=== PATIENT | male | born 1990 | race African-American/Black ===

== ENCOUNTER 2017-11-10 20:49 | Emergency (ER) | payer SELFPAY ==
[2017-11-10] MEDS ORDERED: Ibuprofen 800 MG TAB ONE (23:10)
== END 2017-11-10 23:20 | disposition home or self-care (01) ==
LOC: ERS 20:49
DX: S29.011A Strain of muscle and tendon of front wall of thorax, initial encounter (principal); X50.0XXA Overexertion from strenuous movement or load, initial encounter
CPT/HCPCS: 99283

== ENCOUNTER 2020-02-08 10:21 | Emergency (ER) | payer SELFPAY ==
--- NOTE | 2020-02-08 11:21 | RAD ---
LEFT KNEE 4 VIEWS: Date: 02/08/2020 HISTORY: Left knee pain. COMPARISON: 03/04/2009. FINDINGS: No fracture, dislocation, or bony destruction seen. The BB in the soft tissues above the patella is a gain noted. IMPRESSION: No acute process. POS: AH
== END 2020-02-08 12:42 | disposition home or self-care (01) ==
LOC: ERS 10:21
DX: S89.92XA Unspecified injury of left lower leg, initial encounter (principal); W50.0XXA Accidental hit or strike by another person, initial encounter

== ENCOUNTER 2021-04-22 10:51 | Emergency (ER) | payer SELFPAY ==
[2021-04-22 15:08] LABS: SARS-CoV-2 PCR by NAA DETECTED (NotDetected)
== END 2021-04-22 12:28 | disposition home or self-care (01) ==
LOC: ERS 10:51
DX: U07.1 COVID-19 (principal)
CPT/HCPCS: 87804; 99283; U0003; U0005

== ENCOUNTER 2022-11-10 21:36 | Emergency (ER) | payer OTHER, SELFPAY ==
[2022-11-10] MEDS ORDERED: Ketorolac Tromethamine 30 MG/ML VIAL ONE (23:10)
== END 2022-11-10 23:33 | disposition home or self-care (01) ==
LOC: ERS 21:36
DX: M25.551 Pain in right hip (principal)
CPT/HCPCS: 96372; J1885

== ENCOUNTER 2023-06-01 10:54 | Emergency (ER) | payer OTHER ==
[2023-06-01 11:41] LABS: #Eosinphils 0.1 thou/uL (0.0-0.7); #Monocytes 0.9 thou/uL (0.11-0.59); %Basophils 0.4 % (0.0-1.0); %Eosinophils 1.2 % (0.0-10.0); %Lymphocytes 17.9 % (21.0-51.0); %Monocytes 9.5 % (0.0-10.0); %Neutrophils 70.8 % (42.0-75.0); Hemoglobin 15.3 g/dL (14.0-18.0); Mean Corpuscular Hemoglobin 28.9 pg (27.0-31.0); Mean Corpuscular Volume 85.1 fl (78.0-98.0); Mean Platelet Volume 10.7 fL (7.4-10.4); Platelet Count 250 10x3/uL (130-400); RBC Distribution Width 12.7 % (11.5-14.5); Red Blood Cell (RBC) Count 5.29 mill/uL (4.70-6.10); White Blood Cell (WBC) Count 9.9 10x3/uL (4.8-10.8)
[2023-06-01 12:04] LABS: ALT (SGPT) 43 U/L (8-55); AST (SGOT) 19 U/L (5-34); Albumin 4.4 g/dL (3.5-5.0); Alkaline Phosphatase 95 U/L (40-110); Anion Gap 11 mmol/L (10-20); BUN (Urea Nitrogen) 10 mg/dL (8.9-20.6); Calc. Creatinine Clearance 0 mL/min (70-130); Calcium 9.6 mg/dL (7.8-10.44); Carbon Dioxide 26 mmol/L (22-29); Chloride 102 mmol/L (98-107); Estimated GFR 88; Globulin 3.7 g/dL (2.4-3.5); Glucose 97 mg/dL (70-105); Potassium 4.2 mmol/L (3.5-5.1); Protein, Total 8.1 g/dL (6.0-8.3); Sodium 135 mmol/L (136-145)
[2023-06-01 12:08] LABS: Troponin I Less than 0.010 ng/mL (< 0.028)
== END 2023-06-01 13:18 | disposition home or self-care (01) ==
LOC: ERS 10:54
DX: I10 Essential (primary) hypertension (principal)
CPT/HCPCS: 36415; 71045; 80053; 84484; 85025; 93005

== ENCOUNTER 2024-12-06 19:21 | Emergency (ER) | payer OTHER, SELFPAY ==
[2024-12-07 11:25] LABS: Chlam.trachomatis by PCR,Urine Not Detected (NotDetected); GC N.gonorrhoeae PCR,UrineVOID Not Detected (NotDetected)
== END 2024-12-06 20:07 | disposition home or self-care (01) ==
LOC: ERS 19:21
DX: Z20.2 Contact with and (suspected) exposure to infections with a predominantly sexual mode of transmission (principal)
CPT/HCPCS: 87491; 87591; 99283